=== PATIENT | female | born 1975 | race Caucasian/White ===

== ENCOUNTER 2021-02-09 15:24 | Emergency (ER) | payer BC ==
[~2021-02-09] VITALS: Ht 165.1 cm; Wt 120.2 kg
[~2021-02-09 15:24] MED LIST: OMNICEF 300 MG300 MG PO; ZOFRAN4 MG PO
[2021-02-09 17:27] LABS: HEMOGLOBIN 15.1 gm/dl (12.3-15.3); RED BLOOD COUNT 5.15 M/UL (4.00-5.10); WHITE BLOOD COUNT 7.3 K/UL (4.5-11.0)
[2021-02-09 18:24] LABS: BUN/CREATININE RATIO 13 (0-10)
== END 2021-02-09 20:20 | disposition home or self-care (01) ==
LOC: ER1 15:24
PROVIDERS: Family Medicine
DX: Z23 Encounter for immunization (principal); U07.1 COVID-19; J40 Bronchitis, not specified as acute or chronic; R73.9 Hyperglycemia, unspecified; Z88.0 Allergy status to penicillin; Z88.2 Allergy status to sulfonamides; Z79.899 Other long term (current) drug therapy
CPT/HCPCS: 71045; 80053; 82550; 82553; 83615; 83874; 84484; 85025; 85652; 86140; 94664; 99285; J7030; M0243